=== PATIENT | male | born 1980 | race African-American/Black ===

== ENCOUNTER 2023-12-26 21:32 | Emergency (ER) | payer SELFPAY ==
[~2023-12-26] VITALS: Ht 162.6 cm; Wt 74.8 kg
[2023-12-26] MEDS ORDERED: KETOROLAC TROMETHAMINE 30 MG INJ ONE (21:55)
[2023-12-26] MEDS: KETOROLAC TROMETHAMINE 30 MG INJ IM ONE (21:59)
[2023-12-26] MEDS ORDERED: NAPR-1009 PO (23:39)
[2023-12-26 23:44] VITALS: BP 150/98; O2SAT 99
== END 2023-12-26 23:45 | disposition home or self-care (01) ==
LOC: ER 21:34
DX: S09.8XXA Other specified injuries of head, initial encounter (principal); M54.2 Cervicalgia; M54.9 Dorsalgia, unspecified; M25.512 Pain in left shoulder; M25.562 Pain in left knee; F17.200 Nicotine dependence, unspecified, uncomplicated; Z79.899 Other long term (current) drug therapy; W01.0XXA Fall on same level from slipping, tripping and stumbling without subsequent striking against object, initial encounter; Y93.89 Activity, other specified; Y92.89 Other specified places as the place of occurrence of the external cause; Y99.8 Other external cause status
CPT/HCPCS: 99284; 72040; 72072; 73030; 73564; 96372; J1885; A4606; A4663